=== PATIENT | male | born 1985 | race Caucasian/White ===

== ENCOUNTER 2023-04-18 09:24 | Emergency (ER) | payer OTHER ==
[2023-04-18] MEDS ORDERED: ONDANSETRON 4 MG/2 ML VIAL IVPUSH ONE (09:39)
[2023-04-18] MEDS ORDERED: SODIUM CHLORIDE 0.9% 1000 ML INFUS.BAG IV ONE ×2 (09:39→11:05)
[2023-04-18 09:43] VITALS: RESP 16; BMI 23.6
[2023-04-18] MEDS ORDERED: ONDANSETRON 4 MG/2 ML VIAL ONE (09:45)
[2023-04-18] MEDS ORDERED: ACETAMINOPHEN 1000 MG/100 ML BAG IVPB ONE (09:57)
[2023-04-18] MEDS ORDERED: ACETAMINOPHEN INJECTION 100 ML IVPB ONE (10:08)
[2023-04-18 10:13] LABS: HEMATOCRIT 45.5 % (35.4-49); HEMOGLOBIN 15.5 G/dL (11.7-16.9); MCH 31.5 pg (25.7-33.7); MCHC 34.2 g/dl (32.0-35.9); MEAN CELL VOLUME 92.2 fl (80-96); PLATELET COUNT 177.7 10^3/uL (134-434); RBC 4.93 10^6/uL (4.00-5.60); RDW 13.9 % (11.9-15.9); WHITE BLOOD COUNT 6.2 10^3/uL (4.0-10.8)
[2023-04-18 10:39] LABS: ALBUMIN 4.4 g/dl (3.4-5.0); BILIRUBIN,TOTAL 0.7 mg/dl (0.2-1); CALCIUM 9.6 mg/dl (8.5-10.1); POTASSIUM 4.1 mmol/L (3.5-5.1); TOT PROT 6.6 g/dl (6.4-8.2)
[2023-04-18 11:49] VITALS: BP 126/79; PULSE 66; TEMP 97.8
== END 2023-04-18 11:55 | disposition home or self-care (01) ==
LOC: FER 09:24
PROC: 3E033NZ Introduction of Analgesics, Hypnotics, Sedatives into Peripheral Vein, Percutaneous Approach (ICD-10-PCS; principal; 2023-04-18)
PROC: 3E033GC Introduction of Other Therapeutic Substance into Peripheral Vein, Percutaneous Approach (ICD-10-PCS; 2023-04-18)
DX: R11.2 Nausea with vomiting, unspecified (principal); M62.82 Rhabdomyolysis; Z20.822 Contact with and (suspected) exposure to COVID-19
CPT/HCPCS: 0241U-QW; 36415; 80053; 81003; 82550; 82553; 85027; 93005; 99284-25; J0131